=== PATIENT | female | born 1970 | race Asian ===

== ENCOUNTER → 2017-07-07 | Outpatient (CLI) | payer BC | LOC: FIMAGING 07:21 | PROVIDERS: ATTEND Radiology Diagnostic Radiology | DX: I83.811 Varicose veins of right lower extremity with pain (principal) ==

== ENCOUNTER 2017-07-29 07:07 | Day surgery (SDC) | payer BC ==
[2017-07-29] MEDS ORDERED: ONDANSETRON 4 MG/2 ML VIAL IVP ONE (08:07)
[2017-07-29] MEDS ORDERED: ceFAZolin 2 GM/DEXTROSE 100 ML IV ONE (08:07)
[2017-07-29] MEDS ORDERED: NS 1,000 ML IV ONE (08:07)
[2017-07-29] MEDS ORDERED: NALOXONE HCL 0.4 MG/ML INJ ONE (08:22)
[2017-07-29] MEDS ORDERED: FLUMAZENIL 0.5 MG/5 ML MDV IVP ONE (08:22)
[2017-07-29] MEDS ORDERED: fentaNYL 100 MCG/2 ML INJ ONE (08:23)
[2017-07-29] MEDS ORDERED: MIDAZOLAM 2 MG/2 ML VIAL ONE (08:23)
[2017-07-29] MEDS ORDERED: SODIUM TETRADECYL SULFATE 3% 2 ML VIAL IV ONE (08:56)
[2017-07-29] MEDS ORDERED: LIDO/EPI 1% **for epidural** 30 ML SDV ONE (08:56)
[2017-07-29 10:42] VITALS: PULSE 69
[2017-07-29] MEDS ORDERED: HYDROCODONE/APAP 5/325 TAB PO PRN (10:56)
[2017-07-29] MEDS ORDERED: ONDANSETRON 4 MG/2 ML VIAL IVP PRN (10:56)
[2017-07-29] MEDS ORDERED: ONDANSETRON DISINTEGRATING 4 MG TAB PO PRN (10:57)
[2017-07-29] MEDS ORDERED: IBUPROFEN 200 MG TAB PO ONE ×2 (11:00→13:54)
[2017-07-29] MEDS ORDERED: NS 1,000 ML IV SCH (11:00)
[2017-07-29 12:45] VITALS: O2SAT 99
[2017-07-29 13:57] VITALS: BP 102/65; RESP 14
== END 2017-07-29 13:57 | disposition home or self-care (01) ==
LOC: FIMAGING 07:07
PROVIDERS: ATTEND Radiology Diagnostic Radiology
DX: I83.811 Varicose veins of right lower extremity with pain (principal)
CPT/HCPCS: J0690; J2250; J2310; J3010